=== PATIENT | male | born 1985 | race Caucasian/White ===

== ENCOUNTER 2023-09-04 09:26 | Emergency (ER) | payer OTHER, SELFPAY ==
[2023-09-04 09:38] VITALS: BP 127/67; PULSE 78; RESP 20; TEMP 37; O2SAT 99; BMI 20.7
--- NOTE | 2023-09-04 09:50 | ED.GENADULT ---
HPI - General Adult General Chief complaint: Extremity Injury, Upper Stated complaint: fell on ice scraped chin,L shoulder pain Time Seen by Provider: 09/04/23 09:31 Source: patient Mode of arrival: Ambulatory History of Present Illness HPI narrative: 38-year-old male presents for chin injury after ground level trip and fall approximately 4 hours prior to arrival. Patient slipped on ice and struck his face on the ground. He also injured his left shoulder, but he is mostly concerned with his chin wound. His tetanus shot has been updated within the last 5 years. Denies loss of consciousness, denies use of blood thinners. Review of Systems Review of Systems Narrative: Negative except as noted above Patient History Social History Smoking Status: Current every day smoker Smoking Status: Current every day smoker tobacco type: vaping alcohol intake frequency: holidays/special occasions only Substance Use Type: does not use Exam Initial Vital Signs Initial Vital Signs: Vital Signs Temperature 98.6 F 09/04/23 09:38 Pulse Rate 78 09/04/23 09:38 Respiratory Rate 20 09/04/23 09:38 Blood Pressure 127/67 09/04/23 09:38 Pulse Oximetry 99 09/04/23 09:38 Oxygen Delivery Method Room Air 09/04/23 09:38 Const: Awake, alert, no acute distress, nontoxic appearing Eyes: PERRL, EOMI, conjunctiva normal ENT: Atraumatic, dentition normal, mucous membranes moist Cardiac: regular rate, regular rhythm RESP: unlabored, clear bilaterally, no wheezing GI: Atraumatic, soft, nontender, nondistended, no rebound, no guarding MSK: Atraumatic, full range of motion, pulses equal, No reproducible tenderness to palpation L shoulder Skin: 3 cm v-shaped laceration left chin Neuro: AO x3, CN II-XII grossly intact, moves all extremities Psych: affect normal, mood normal, not suicidal, not homicidal Procedures Laceration Repair Laceration 1: Site: face Side (If applicable): left Size (cm): 3 Description: irregular and clean Depth: simple, single layer Local Anesthetic: lidocaine 1% and with epi Amount of anesthesia used (mL): 2 Pre-repair: wound explored, irrigated extensively, deep structures intact and wound margins revised Skin layer closed with: nylon Skin layer suture size: 5-0 Number of sutures: 5 Technique: simple, interrupted Course Course Course Narrative: Well-appearing patient with facial injury and left shoulder pain after ground level fall. Patient is neurovascularly intact, nexus head CT rule negative. Patient has no reproducible tenderness when the left shoulder is palpated and has full range of motion of his left shoulder, no indication for advanced imaging at this time. Wound was repaired per procedure note. Instructions for care discussed with patient at bedside. Vital Signs Vital signs: Vital Signs - 8 hr 09/04/23 09:38 Temperature 98.6 F Pulse Rate 78 Respiratory Rate 20 Blood Pressure 127/67 Pulse Oximetry 99 Oxygen Delivery Method Room Air Discharge Plan Departure Patient Disposition: Home Clinical Impression: Chin laceration Instructions: DI for Laceration Repair -- Simple Activity Restrictions/Additional Instructions: Suture removal in 5-7 days. Keep clean and dry. Wear sunscreen to prevent scarring. Do not groom or trim your rivera while sutures are in place. Stand Alone Forms: Patient Portal/API
--- NOTE | 2023-09-04 10:04 | PC.NURSE ---
pt no c/o pain and numbness in shoulder and hand that he rates as a 2/10 pain.
== END 2023-09-04 10:32 | disposition home or self-care (01) ==
PROVIDERS: Emergency Provider Emergency Medicine
DX: S01.81XA Laceration without foreign body of other part of head, initial encounter (principal); W00.0XXA Fall on same level due to ice and snow, initial encounter
CPT/HCPCS: 12013; 99281; 99283

== ENCOUNTER 2024-09-16 22:08 | Emergency (ER) | payer OTHER, SELFPAY ==
[2024-09-16 22:15] VITALS: BP 130/81; PULSE 68; RESP 18; TEMP 36.9; O2SAT 98; BMI 21.4
--- NOTE | 2024-09-17 00:19 | ED_ITS ---
HPI - Headache General Chief Complaint: Headache Stated Complaint: head and neck pain s/p hitting head t-6 Time Seen by Provider: 09/17/24 00:17 Source: patient, RN notes reviewed and old records reviewed Mode of arrival: Ambulatory Limitations: no limitations History of Present Illness HPI Narrative: 39-year-old male no reported medical issues presents with complaint of hit head at work on 09/10/2024 seen at [facility] same day for L and I had x-rays reportedly had neck with complaint of worsening pain and feeling in the right head and neck with pain that she was still in the right arm 8/10 pain worsening throughout the day and worked a by evening time. 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 Patient states he felt a pop in his neck and had pain. [place] very tight particularly on the right side. Also has a headache little bit of dizziness some nausea but no vomiting. Patient was seen at [facility] was offered Saturday lumbar back to work. 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 States still has some numbness tingling in the 4th and 5th digits but otherwise has not improved. Still has discomfort in the neck itself but no pain radiating down the arm currently. Patient states no daily medications. No prior surgeries. No known prior neck injuries. No new trauma patient has been taking Tylenol for pain which he states has not been very helpful. Does use tobacco daily, occasional alcohol, recreational drugs. Did have L and I paperwork filled out at the other hospital in his plan to call back with the L and I number so paperwork can be completed here as well. Related Data Previous Rx's Medication Instructions Recorded prednisone 10 mg tablets in a dose See Rx Instructions PO .COMPLEX 09/17/24 pack #21 ea Allergies Allergy/AdvReac Type Severity Reaction Status Date / Time No Known Drug Allergies Allergy Verified 09/16/24 23:48 Review of Systems Review of Systems ROS Unobtainable: All systems reviewed & are unremarkable except as noted in HPI and below Patient History Social History Smoking Status: Current every day smoker Smoking Status: Current every day smoker tobacco type: vaping alcohol intake frequency: holidays/special occasions only Exam Narrative Exam Narrative: GENERAL: Alert and oriented x three, mild distress. HEENT: Head normocephalic, atraumatic, EOMI, pupils reactive, face symmetric, moist mucous membranes NECK: Supple, full range of motion, no vertebral tenderness. Full range of motion. Positive Spurling's test bilaterally. No paraspinal tightness. CARDIOVASCULAR: Regular rate and rhythm without murmurs, rubs or gallops. RESPIRATORY: Breath sounds equal bilaterally, no wheezes rales or rhonchi. ABDOMEN: Soft, nontender. Normoactive bowel sounds all 4 quadrants. No guarding or rebound, rigidity, no mass : No CVA tenderness EXTREMITIES: Normal range of motion, no clubbing or edema. 5/5 muscle strength upper extremities. Normal sensation to light touch. Patient is able to easily remove his jacket without any assistance. Neurovascularly intact NEUROLOGICAL: Cranial nerves II through XII grossly intact. Moving all extremities SKIN: Warm, dry, no petechiae, no rashes or lesions. Initial Vital Signs Initial Vital Signs: Vital Signs Temperature 98.4 F 09/16/24 22:15 Pulse Rate 68 09/16/24 22:15 Respiratory Rate 18 09/16/24 22:15 Blood Pressure 130/81 09/16/24 22:15 Pulse Oximetry 98 09/16/24 22:15 Oxygen Delivery Method Room Air 09/16/24 22:15 Course Orders Ordered: ED Orders 09/17/24 00:33 CT cervical spine wo con Stat Discontinued Medications Albuterol/Ipratropium (Albuterol/Ipratropium 3 Ml Ampul) 3 ml INH NOW ONE Stop: 09/16/24 23:40 Last Admin: 09/16/24 23:55 Dose: Not Given Documented By: AB Vital Signs Vital signs: Vital Signs - 8 hr 09/16/24 22:15 09/17/24 01:54 Temperature 98.4 F Pulse Rate 68 78 Respiratory Rate 18 16 Blood Pressure 130/81 126/80 Pulse Oximetry 98 100 Oxygen Delivery Method Room Air MDM - Headache Imaging Data CT cervical spine: Radiologist's Impression: [address] [address] [address] Scan Report Signed Patient: Patricio So MR#: [id number] : 1985 Acct:[id number] Age/Sex: 39 / M Date of Service: 09/17/24 Loc: ED Accession Number: [id number] Procedure: CT cervical spine wo con Ordering Provider: Jayla Mtz D.O. PROCEDURE: CT CERVICAL SPINE WO CON INDICATIONS: neck pain, radiates down arm, had hyperextension injury 09/10 TECHNIQUE: Noncontrast 3 mm thick sections acquired from the skull base to the T4 level. Sagittal and coronal reformats were then constructed. For radiation dose reduction, the following was used: automated exposure control, adjustment of mA and/or kV according to patient size. COMPARISON: Cervical spine radiographs 09/10/2024. FINDINGS: Image quality: Diagnostic. Bones: No fractures or dislocations. Visualized superior ribs are intact. Soft tissues: Prevertebral soft tissues are normal in thickness. No paravertebral hematomas. No apical pneumothoraces. IMPRESSION: No acute displaced fracture or traumatic subluxation. Approved by: Clare Watson M.D.,Ph.D. 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 Discussed with the patient he was nontender with bony tendernes s but does have some increased pain with Spurling's has a some days of symptoms with no improvement and does note some radicular type symptoms I suspect he has a little bit of nerve impingement CT cervical spine was obtained to evaluate bones as well as spacing of the joints. CT cervical spine shows no acute change. Patient was continue with Tylenol can add ibuprofen as needed for pain. We will give a short course of prednisone to see if this improves his radicular symptoms discussed he should have follow up no improvement over the next week. Also discussed return precautions. Questions answered Discharge Plan Departure Patient Disposition: Home Clinical Impression: Cervical pain Instructions: DI for Neck Pain Activity Restrictions/Additional Instructions: Please follow up in the next week with primary care or L&I. There should be a contact number on your L&I paperwork to set up follow up if your symptoms are persisting. You can continue with the acetaminophen up to a 1000 mg and/or ibuprofen up to 600 mg every 6 hours as needed pain. You can try a short course of oral prednisone this is sometimes helpful for nerve pain. Take as prescribed. Would recommend taking food with this medication. Prescription sent to [facility] in [place]. Please return for rapidly worsening symptoms, new loss of bowel or bladder control, loss of sensation your arm inability to lift or move your arm, or any other new or concerning changes. Prescriptions: New prednisone 10 mg tablets,dose pack See Rx Instructions .ROUTE .COMPLEX Qty: 21 0RF Rx Instructions: 6 tabs p.o. x1 day, then 5 tabs p.o. x1 day, then 4 tablets p.o. x1 day, then 3 tabs p.o. x1 day, then 2 tabs p.o. x1 day, then 1 tab p.o. x1 day Referrals: Miscellaneous,Doctor, MD [Primary Care Provider] - Stand Alone Forms: Patient Portal/API/Survey
--- NOTE | 2024-09-17 00:33 | DI.CT.S_ITS ---
PROCEDURE: CT CERVICAL SPINE WO CON INDICATIONS: neck pain, radiates down arm, had hyperextension injury 09/10 TECHNIQUE: Noncontrast 3 mm thick sections acquired from the skull base to the T4 level. Sagittal and coronal reformats were then constructed. For radiation dose reduction, the following was used: automated exposure control, adjustment of mA and/or kV according to patient size. COMPARISON: Cervical spine radiographs 09/10/2024. FINDINGS: Image quality: Diagnostic. Bones: No fractures or dislocations. Visualized superior ribs are intact. Soft tissues: Prevertebral soft tissues are normal in thickness. No paravertebral hematomas. No apical pneumothoraces. IMPRESSION: No acute displaced fracture or traumatic subluxation. Approved by: Clare Watson M.D.,Ph.D. on 09/17/2024 at 1:28
[2024-09-17 01:54] VITALS: BP 126/80; PULSE 78; RESP 16; O2SAT 100
== END 2024-09-17 01:55 | disposition home or self-care (01) ==
PROVIDERS: Emergency Provider Emergency Medicine
DX: M54.2 Cervicalgia (principal); S09.90XA Unspecified injury of head, initial encounter; W22.8XXA Striking against or struck by other objects, initial encounter; F17.210 Nicotine dependence, cigarettes, uncomplicated
CPT/HCPCS: 72125; 99281; 99284

== ENCOUNTER 2024-09-22 12:29 | Emergency (ER) | payer OTHER, SELFPAY ==
[2024-09-22 12:48] VITALS: BP 121/74; PULSE 78; RESP 18; TEMP 36.9; O2SAT 97; BMI 21.4
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
[2024-09-22 16:44] VITALS: BP 110/68; PULSE 77; RESP 16; O2SAT 99
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
== END 2024-09-22 17:08 | disposition left against medical advice (07) ==
PROVIDERS: Emergency Provider Emergency Medicine
DX: M54.6 Pain in thoracic spine (principal); R20.0 Anesthesia of skin; V89.2XXA Person injured in unspecified motor-vehicle accident, traffic, initial encounter; Y99.0 Civilian activity done for income or pay; Z53.29 Procedure and treatment not carried out because of patient's decision for other reasons
CPT/HCPCS: 99281

== ENCOUNTER 2024-09-29 22:33 | Emergency (ER) | payer OTHER, SELFPAY ==
[2024-09-29 22:45] VITALS: BP 131/77; PULSE 68; RESP 18; TEMP 37.1; O2SAT 97; BMI 21.4
[2024-09-30 00:20] VITALS: BP 109/56; PULSE 79; RESP 16; TEMP 36.9; O2SAT 97
== END 2024-09-30 02:00 | disposition left against medical advice (07) ==
PROVIDERS: Emergency Provider Emergency Medicine
DX: M54.9 Dorsalgia, unspecified (principal)
CPT/HCPCS: 99281